=== PATIENT | male | born 1990 | race Caucasian/White ===

== ENCOUNTER 2021-08-27 03:08 | Emergency (ER) | payer OTHER ==
[~2021-08-27] VITALS: Ht 170.2 cm; Wt 81.6 kg
--- NOTE | 2021-08-27 04:11 | NUR ---
pt ambulated to room 5. pt c/o nausea. Dr. Valdovinos at bedside for MSE.
--- NOTE | 2021-08-27 04:14 | NUR ---
Dr. Valdovinos at bedside for MSE.
[2021-08-27 04:27] LABS: *OCCULT BLOOD STOOL POSITIVE (NEGATIVE)
[2021-08-27] MEDS ORDERED: ONDANSETRON 4 MG/2 ML VIAL IV ONE ×2 (04:30→05:45)
[2021-08-27] MEDS ORDERED: IV NORMAL SALINE 500 ML BAG IV ONE (04:30)
[2021-08-27] MEDS ORDERED: ONDANSETRON 4 MG/2 ML VIAL ONE ×2 (04:34→05:49)
[2021-08-27 04:39] LABS: POTASSIUM 3.6 mmol/L (3.5-5.1)
[2021-08-27 04:40] LABS: MEAN CORPUSCULAR HEMOGLOBIN 30.5 uug (23.8-33.4); MEAN CORPUSCULAR VOLUME 87.6 fL (73.0-96.2); PLATELET COUNT (AUTO) 222 K/uL (152-348)
[2021-08-27 04:44] LABS: BILIRUBIN,TOTAL 0.6 mg/dL (0.2-1.0); TOTAL PROTEIN, SERUM 8.1 g/dL (6.4-8.2)
[2021-08-27] MEDS ORDERED: NALO4SPR BNOSTRILS (05:16)
[2021-08-27] MEDS ORDERED: FAMO-132 PO (05:28)
[2021-08-27] MEDS ORDERED: ONDA4TAB5 GT (05:28)
--- NOTE | 2021-08-27 06:00 | NUR ---
Patient discharged to home in stable condition. Written and verbal after care instructions given. Patient verbalizes understanding of instructions. Stressed follow up or return to ER for worsening s/s. pt ambulated without assist.
[2021-08-27 06:16] VITALS: BP 154/78
== END 2021-08-27 06:16 | disposition home or self-care (01) ==
LOC: ER 03:12
DX: R10.13 Epigastric pain (principal); R11.2 Nausea with vomiting, unspecified; F11.10 Opioid abuse, uncomplicated; F12.10 Cannabis abuse, uncomplicated; R19.5 Other fecal abnormalities
CPT/HCPCS: 36415; 80053; 82270; 83690; 85025; 96361; 96374; 96376; 99284; J2405 ×2; A4663; J7030